=== PATIENT | female | born 1965 | race Caucasian/White ===

== ENCOUNTER → 2016-12-12 | Outpatient (CLI) | payer OTHER ==
--- NOTE | 2016-12-12 14:37 | MA ---
Bilateral Screening Digital Mammograms with iCAD Clinical Indications: Routine screening mammograms. Focal asymmetry left breast Technique: Standard digital cephalocaudal and mediolateral oblique projections were obtained. This examination was processed by the [facility] computer-aided detection system. Comparison: None. Breast Parenchymal Density: B, scattered density Findings: Asymmetry outer left breast. The remainder of the left and right breast are unremarkable. Impression: Asymmetry outer left breast Recommendation: Spot compression view. If persistent, proceed to ultrasound at the discretion of the interpreting radiologist. BI-RADS 0. Additional imaging left breast. The patients information is entered into a reminder system with a target due date for her next mammog enid. Negative mammography should not preclude additional workup of a clinically suspicious finding.
== END ==
LOC: BRMIMAGING 12:41
DX: Z12.31 Encounter for screening mammogram for malignant neoplasm of breast (principal)
CPT/HCPCS: G0202

== ENCOUNTER → 2016-12-29 | Outpatient (CLI) | payer OTHER ==
--- NOTE | 2016-12-29 10:07 | MA ---
Diagnostic Digital Left Mammography Clinical History: 51-year-old female who had a recent baseline screening mammogram revealing a parenc hymal asymmetry in the lateral left breast as a "one-view finding." Her family history is notable for a paternal grandmother with breast cancer in her 40s. Technique: Digital mediolateral, small and large paddle spot compression craniocaudal, and rolled med ial and rolled lateral craniocaudal views of the left breast are compared with the baseline exam of J leathauary 2016. Breast Density: Type B. CAD Evaluation: Reviewed. Findings: The area of parenchymal asymmetry does vaguely persist on the spot compression craniocaudal views; however, the rolled craniocaudal views suggest that it is probably related to some persistent superimposition, and there is no abnormality confirmed in the orthogonal ML plane. Nonetheless, targ eted sonography of the upper outer left breast will be obtained. There are some benign-appearing suba reolar calcifications. Impression: Needs additional imaging evaluation. BI-RADS Category 0, incomplete. Recommendation: Targeted left lateral breast sonography.
--- NOTE | 2016-12-29 12:03 | US ---
Left Breast Sonography Clinical History: 51-year-old female noted to have some likely-benign parenchymal asymmetry in the la teral left breast with diminished conspicuity on supplementary views. She does have a family history notable for a paternal grandmother with breast cancer in her 40s. Technique: A linear 12 MHz transducer was used to sonographically evaluate the 12-3 o'clock positions of the left breast with the electrician yard and sonologist both present during the exam. Color Doppler w as used. Cine clips are also provided. Findings: Diagnostic mammography from earlier this morning. Findings: There are areas of normal fibroglandular tissue seen from the 12-3 o'clock positions. In th e 2 o'clock position, seen posteriorly, approximately 5 cm from the nipple, there is a likely-benign island of fibroglandular tissue (with a cine clip submitted). There is no associated vascularity. Giv en the mammographic and sonographic findings, unilateral left mammography and repeat sonography in 6 months are recommended. I also encouraged the patient to perform monthly breast self exam. Impression: Likely-benign mammographic and sonographic findings. BI-RADS Category 3. Recommendation: Unilateral left mammography and repeat sonography in 6 months.
== END ==
LOC: BRMIMAGING 09:08
DX: R92.8 Other abnormal and inconclusive findings on diagnostic imaging of breast (principal)
CPT/HCPCS: 76641-PO; G0206